=== PATIENT | male | born 1975 | race Two or more races ===

== ENCOUNTER 2021-07-24 07:54 | Emergency (ER) | payer MEDICAID, OTHER ==
[~2021-07-24] VITALS: Ht 157.5 cm; Wt 95.3 kg
[2021-07-24 07:55] VITALS: BP 216/111
[2021-07-24] MEDS ORDERED: cloNIDine HCL 0.1 MG TAB PO ONE (08:15)
== END 2021-07-24 09:14 | disposition left against medical advice (07) ==
LOC: ER 07:54
DX: I16.0 Hypertensive urgency (principal); M54.50 Low back pain, unspecified